=== PATIENT | female | born 1950 | race African-American/Black ===

== ENCOUNTER 2021-05-07 15:33 | Inpatient (IN) | payer MEDICARE, MEDICAID ==
[~2021-05-07] VITALS: Ht 152.4 cm; Wt 100.7 kg
[2021-05-07] MEDS ORDERED: POTASSIUM (15:48)
[2021-05-07] MEDS ORDERED: METOPROLOL (15:48)
[2021-05-07] MEDS ORDERED: LASIX (15:48)
[2021-05-07 16:56] LABS: BASOPHILS % 0.6 % (0.0-2.0); EOSINOPHILS % 3.2 % (0.0-5.0); HEMATOCRIT. 34.4 % (36.0-48.0); HEMOGLOBIN. 11.4 g/dL (12.0-16.0); LYMPHOCYTES % 33.4 % (20.0-50.0); MEAN CORPUSCULAR HEMOGLOBIN 27.4 pg (28.0-32.0); MEAN CORPUSCULAR VOLUME 82.3 fL (81.0-99.0); MEAN PLATELET VOLUME 9.2 fl (7.4-10.4); NEUTROPHILS % 52.8 % (40.0-76.0); PLATELET 215 x1000/uL (130-400); RED BLOOD CELL COUNT 4.18 mill/uL (4.2-5.4); RED CELL DISTRIBUTION WIDTH 14.6 % (11.6-14.6)
[2021-05-07 17:02] LABS: CHLORIDE 110 mEq/L (98-107)
[2021-05-07 18:07] LABS: ETHANOL BLOOD < 10 mg/dL
[2021-05-07 19:24] LABS: CLARITY URINE CLOUDY (CLEAR); COLOR URINE YELLOW (YELLOW); KETONES URINE TRACE (NEGATIVE); LEUKOCYTE ESTERASE URINE TRACE (NEGATIVE); NITRITE URINE NEGATIVE (NEGATIVE); OCCULT BLOOD URINE NEGATIVE (NEGATIVE); PH URINE 5.5 (4.5-8.0); PROTEIN URINE TRACE (NEGATIVE); SPECIFIC GRAVITY URINE 1.028 (1.005-1.030)
[2021-05-07] MEDS ORDERED: CEFTRIAXONE 1 G PREMIX 50 ML IV ONE (19:30)
[2021-05-07] MEDS ORDERED: AZITHROMYCIN 500 MG in DEXT 5% WATER 250 ML IV ONE (19:30)
[2021-05-07 19:35] LABS: *AMPHETAMINES SCREEN URINE NEGATIVE (NEGATIVE); *BARBITURATES SCREEN URINE NEGATIVE (NEGATIVE); *BENZODIAZEPINES SCREEN URINE NEGATIVE (NEGATIVE); *COCAINE SCREEN URINE NEGATIVE (NEGATIVE); OPIATES URINE SCREEN NEGATIVE (NEGATIVE); PHENCYCLIDINE URINE SCREEN NEGATIVE (NEGATIVE)
[2021-05-07 19:36] LABS: CANNABINOID URINE SCREEN NEGATIVE (NEGATIVE)
[2021-05-07 19:37] LABS: METHADONE URINE SCREEN NEGATIVE (NEGATIVE)
[2021-05-07 21:49] VITALS: BP 143/71
[2021-05-07] MEDS ORDERED: ASPI-1160 PO (22:55)
[2021-05-07] MEDS ORDERED: FOLI-43 PO (22:55)
[2021-05-07] MEDS ORDERED: FURO-152 PO (22:55)
[2021-05-07] MEDS ORDERED: DIGO125T80 PO (22:57)
[2021-05-07] MEDS ORDERED: LOSA25TA26 MT (22:58)
[2021-05-07] MEDS ORDERED: HYDR-4133 PO (22:58)
[2021-05-07 23:41] VITALS: BP 143/71
[2021-05-07] MEDS: HYDRALAZINE HCL 50MG TABLET PO SCH (23:54)
[2021-05-08] VITALS (8 sets, daily range): BP systolic 119–160; BP diastolic 59–86
[2021-05-08] MEDS: HYDRALAZINE HCL 50MG TABLET PO SCH (06:13)
[2021-05-08 06:59] LABS: HEMATOCRIT 35.3 % (36.0-48.0); HEMOGLOBIN 11.6 g/dL (12.0-16.0); MEAN CORPUSCULAR HEMOGLOBIN 27.1 pg (28.0-32.0); MEAN CORPUSCULAR VOLUME 82.2 fL (81.0-99.0); PLATELET 208 x1000/uL (130-400); RED BLOOD CELL COUNT 4.29 mill/uL (4.2-5.4); RED CELL DISTRIBUTION WIDTH 14.5 % (11.6-14.6)
[2021-05-08 07:00] LABS: CHLORIDE 110 mEq/L (98-107)
[2021-05-08 07:15] LABS: LDL CHOLESTEROL 64 mg/dL (5-100)
[2021-05-08 07:16] LABS: HDL CHOLESTEROL 43 mg/dL (40-59)
[2021-05-08] MEDS ORDERED: CARVEDILOL 3.125 MG TABLET PO SCH (09:00)
[2021-05-08] MEDS: LISINOPRIL 20MG TABLET PO SCH (09:00)
[2021-05-08] MEDS ORDERED: CARVEDILOL 6.25 MG TABLET PO SCH (09:09)
[2021-05-08] MEDS ORDERED: BISACODYL 10MG SUPP PR SCH (09:15)
[2021-05-08] MEDS ORDERED: LACTULOSE 20G/30ML UDC PO SCH (09:15)
[2021-05-08] MEDS: ASPIRIN 81MG TABLET PO SCH (09:20)
[2021-05-08] MEDS: FUROSEMIDE 40MG TABLET PO SCH (09:20)
[2021-05-08] MEDS: FOLIC ACID 1MG TABLET PO SCH (09:25)
[2021-05-08] MEDS: ENOXAPARIN 30MG/0.3ML SYR SUBCUT SCH ×2 (09:32→21:06)
[2021-05-08] MEDS: ACETAMINOPHEN 325MG TABLET PO PRN (11:22)
[2021-05-08] MEDS ORDERED: LACTULOSE 20G/30ML UDC PO PRN (12:00)
[2021-05-08] MEDS: DOCUSATE SODIUM 250MG CAPSULE PO SCH (13:02)
[2021-05-08] MEDS: HYDRALAZINE HCL 25MG TABLET PO SCH ×2 (14:26→21:07)
[2021-05-08] MEDS: DIGOXIN 125MCG TABLET PO SCH (18:00)
[2021-05-08] MEDS ORDERED: THROAT LOZENGES-BENZOCAINE/MENTH/CETYLPYRD CL LOZENGES MM PRN (18:45)
[2021-05-08] MEDS: FLUTICASONE PROPIONATE 50MCG/SPRAY BOTTLE BOTHNSTRLS SCH (21:05)
[2021-05-09 00:51] VITALS: BP 123/60
[2021-05-09 04:00] VITALS: BP 117/61
[2021-05-09] MEDS: HYDRALAZINE HCL 25MG TABLET PO SCH ×3 (06:41→21:00)
[2021-05-09 08:00] VITALS: BP_SYST 138; BP_DIAS 72; BP_DIAS 80
[2021-05-09] MEDS: FLUTICASONE PROPIONATE 50MCG/SPRAY BOTTLE BOTHNSTRLS SCH ×2 (09:00→20:54)
[2021-05-09] MEDS: ASPIRIN 81MG TABLET PO SCH (09:28)
[2021-05-09] MEDS: ENOXAPARIN 30MG/0.3ML SYR SUBCUT SCH ×2 (09:29→20:55)
[2021-05-09] MEDS: FUROSEMIDE 40MG TABLET PO SCH (09:29)
[2021-05-09] MEDS: FOLIC ACID 1MG TABLET PO SCH (09:29)
[2021-05-09] MEDS: ACETAMINOPHEN 325MG TABLET PO PRN ×2 (09:29→23:47)
[2021-05-09] MEDS: DOCUSATE SODIUM 250MG CAPSULE PO SCH (09:29)
[2021-05-09] MEDS: LISINOPRIL 20MG TABLET PO SCH (09:30)
[2021-05-09 12:00] VITALS: BP 107/56
[2021-05-09] MEDS: SPIRONOLACTONE 25MG TABLET PO SCH (13:32)
[2021-05-09 16:00] VITALS: BP 122/62
[2021-05-09] MEDS: DIGOXIN 125MCG TABLET PO SCH (18:02)
[2021-05-09 20:00] VITALS: BP_SYST 119; BP_SYST 120; BP_DIAS 54; BP_DIAS 60
[2021-05-10] VITALS: BP 145/63
[2021-05-10] MEDS ORDERED: HYDROCODONE/ACETAMINOPHEN 5/325MG TABLET PO PRN (02:30)
[2021-05-10 04:00] VITALS: BP 113/53
[2021-05-10] MEDS: HYDRALAZINE HCL 25MG TABLET PO SCH (06:00)
[2021-05-10 08:00] VITALS: BP 136/50
[2021-05-10] MEDS: FLUTICASONE PROPIONATE 50MCG/SPRAY BOTTLE BOTHNSTRLS SCH (09:25)
[2021-05-10] MEDS: FUROSEMIDE 40MG TABLET PO SCH (09:25)
[2021-05-10] MEDS: ASPIRIN 81MG TABLET PO SCH (09:25)
[2021-05-10] MEDS: DOCUSATE SODIUM 250MG CAPSULE PO SCH (09:25)
[2021-05-10] MEDS: LISINOPRIL 20MG TABLET PO SCH (09:26)
[2021-05-10] MEDS: SPIRONOLACTONE 25MG TABLET PO SCH (09:26)
[2021-05-10] MEDS: FOLIC ACID 1MG TABLET PO SCH (09:26)
[2021-05-10] MEDS: ACETAMINOPHEN 325MG TABLET PO PRN (09:27)
[2021-05-10] MEDS: ENOXAPARIN 30MG/0.3ML SYR SUBCUT SCH (09:27)
[2021-05-10] MEDS ORDERED: TRAMADOL 50MG TABLET PO PRN (10:45)
[2021-05-10 11:11] VITALS: BP 140/55
[2021-05-10 12:00] VITALS: BP 143/59
== END 2021-05-10 13:03 | disposition home or self-care (01) | DRG 280 ==
LOC: ER 15:33 → EDBEDREQ 18:19 → ENRESERV 21:02 → 6WST 21:44
PROVIDERS: ADMIT Internal Medicine; ATTEND Internal Medicine
PROC: 4A10X4Z Monitoring of Central Nervous Electrical Activity, External Approach (ICD-10-PCS; principal; 2021-05-09)
DX: I21.4 Non-ST elevation (NSTEMI) myocardial infarction (principal); I50.43 Acute on chronic combined systolic (congestive) and diastolic (congestive) heart failure; Z68.41 Body mass index [BMI] 40.0-44.9, adult; I42.9 Cardiomyopathy, unspecified; I11.0 Hypertensive heart disease with heart failure; I16.0 Hypertensive urgency; D64.9 Anemia, unspecified; Z20.822 Contact with and (suspected) exposure to COVID-19; F40.240 Claustrophobia; G90.8 Other disorders of autonomic nervous system; R00.1 Bradycardia, unspecified; E66.9 Obesity, unspecified; E78.5 Hyperlipidemia, unspecified; Z90.49 Acquired absence of other specified parts of digestive tract; Z86.011 Personal history of benign neoplasm of the brain; Z71.3 Dietary counseling and surveillance
CPT/HCPCS: 36415; 71045; 80048; 80053; 80061; 80305; 80320; 81003; 83605; 83735; 83880; 84484; 85025; 85027; 87426; 93005; 93306; 93880; 93970; 95816; 97161; 99285; C1893; J0456; J0696; J1650; J7060; G0480

== ENCOUNTER 2022-04-23 07:32 | Emergency (ER) | payer MEDICARE, MEDICAID ==
[~2022-04-23] VITALS: Ht 152.4 cm; Wt 98.0 kg
[~2022-04-23 07:32] MED LIST: ASPI-1160 PO; DIGO125T80 PO; FOLI-43 PO; FURO-152 PO; HYDR-4133 PO; LASIX; LOSA25TA26 MT; METOPROLOL; POTASSIUM
[2022-04-23 07:40] VITALS: BP 146/85
[2022-04-23 08:26] LABS: CHLORIDE 109 mEq/L (98-107)
[2022-04-23 08:27] LABS: BASOPHILS % 0.7 % (0.0-2.0); HEMATOCRIT. 35.4 % (36.0-48.0); HEMOGLOBIN. 11.6 g/dL (12.0-16.0); LYMPHOCYTES % 29.8 % (20.0-50.0); MEAN CORPUSCULAR HEMOGLOBIN 27.1 pg (28.0-32.0); MEAN CORPUSCULAR VOLUME 82.5 fL (81.0-99.0); MEAN PLATELET VOLUME 8.9 fl (7.4-10.4); MONOCYTES % 9.5 % (2.0-8.0); PLATELET 237 x1000/uL (130-400); RED CELL DISTRIBUTION WIDTH 14.5 % (11.6-14.6)
== END 2022-04-23 09:32 | disposition home or self-care (01) ==
LOC: ER 07:48
DX: R04.0 Epistaxis (principal); I11.0 Hypertensive heart disease with heart failure; I50.9 Heart failure, unspecified; E78.00 Pure hypercholesterolemia, unspecified; Z90.49 Acquired absence of other specified parts of digestive tract; Z79.82 Long term (current) use of aspirin; Z88.0 Allergy status to penicillin
CPT/HCPCS: 36415; 71045; 80053; 85025; 86850; 86900; 99284

== ENCOUNTER 2022-04-27 23:39 | Emergency (ER) | payer MEDICARE, MEDICAID ==
[~2022-04-27] VITALS: Ht 162.6 cm; Wt 100.0 kg
[2022-04-27 23:41] VITALS: BP 154/77
[2022-04-28] MEDS ORDERED: TRANEXAMIC ACID 1,000 MG/10 ML IV ONE (00:15)
== END 2022-04-28 01:29 | disposition home or self-care (01) ==
LOC: ER 23:39
DX: R04.0 Epistaxis (principal)
CPT/HCPCS: 96374; 99283

== ENCOUNTER 2022-05-04 04:25 | Emergency (ER) | payer MEDICARE, MEDICAID ==
[~2022-05-04] VITALS: Ht 152.4 cm; Wt 99.7 kg
[2022-05-04] MEDS ORDERED: BENZ100C86 MT (07:21)
[2022-05-04 08:03] VITALS: BP 128/75
== END 2022-05-04 08:15 | disposition home or self-care (01) ==
LOC: ER 04:25
DX: R05.9 Cough, unspecified (principal); R04.0 Epistaxis; I11.0 Hypertensive heart disease with heart failure; I50.9 Heart failure, unspecified; J44.9 Chronic obstructive pulmonary disease, unspecified; Z90.49 Acquired absence of other specified parts of digestive tract
CPT/HCPCS: 71045; 93005; 99283

== ENCOUNTER 2022-05-29 02:37 | Emergency (ER) | payer MEDICARE, MEDICAID ==
[~2022-05-29] VITALS: Ht 152.4 cm; Wt 100.2 kg
[~2022-05-29 02:37] MED LIST changes: +BENZ100C86 MT
[2022-05-29 04:29] LABS: BASOPHILS % 0.9 % (0.0-2.0); EOSINOPHILS % 3.2 % (0.0-5.0); HEMATOCRIT. 34.7 % (36.0-48.0); HEMOGLOBIN. 11.3 g/dL (12.0-16.0); LYMPHOCYTES % 32.4 % (20.0-50.0); MEAN CORPUSCULAR HEMOGLOBIN 27.2 pg (28.0-32.0); MEAN CORPUSCULAR VOLUME 83.5 fL (81.0-99.0); MEAN PLATELET VOLUME 8.9 fl (7.4-10.4); MONOCYTES % 9.9 % (2.0-8.0); NEUTROPHILS % 53.6 % (40.0-76.0); PLATELET 243 x1000/uL (130-400); RED BLOOD CELL COUNT 4.15 mill/uL (4.2-5.4); RED CELL DISTRIBUTION WIDTH 14.9 % (11.6-14.6)
[2022-05-29 04:38] LABS: CHLORIDE 107 mEq/L (98-107)
[2022-05-29 04:46] LABS: PROTHROMBIN TIME 10.7 sec (9.6-11.0)
[2022-05-29 06:00] VITALS: BP 139/68
== END 2022-05-29 07:08 | disposition home or self-care (01) ==
LOC: ER 02:37
DX: R04.0 Epistaxis (principal); J44.9 Chronic obstructive pulmonary disease, unspecified; I11.0 Hypertensive heart disease with heart failure; I50.9 Heart failure, unspecified; E78.00 Pure hypercholesterolemia, unspecified; Z90.721 Acquired absence of ovaries, unilateral; Z90.49 Acquired absence of other specified parts of digestive tract; Z79.82 Long term (current) use of aspirin; Z88.5 Allergy status to narcotic agent; Z88.8 Allergy status to other drugs, medicaments and biological substances; Z88.0 Allergy status to penicillin
CPT/HCPCS: 36415; 80048; 85025; 93005; 99284

== ENCOUNTER 2022-09-22 23:57 | Emergency (ER) | payer MEDICARE, MEDICAID | END 2022-09-23 00:19 | disposition left against medical advice (07) | LOC: ER 23:57 | DX: Z53.21 Procedure and treatment not carried out due to patient leaving prior to being seen by health care provider (principal) ==

== ENCOUNTER 2022-11-17 04:38 | Inpatient (IN) | payer MEDICARE, MEDICAID ==
[~2022-11-17] VITALS: Ht 167.6 cm; Wt 98.4 kg
[2022-11-17 08:32] LABS: HEMATOCRIT. 36.6 % (36.0-48.0); HEMOGLOBIN. 11.8 g/dL (12.0-16.0); MEAN CORPUSCULAR HEMOGLOBIN 26.9 pg (28.0-32.0); MEAN CORPUSCULAR VOLUME 83.5 fL (81.0-99.0); MEAN PLATELET VOLUME 8.2 fl (7.4-10.4); PLATELET 279 x1000/uL (130-400); RED BLOOD CELL COUNT 4.39 mill/uL (4.2-5.4); RED CELL DISTRIBUTION WIDTH 15.1 % (11.6-14.6)
[2022-11-17] MEDS ORDERED: ONDANSETRON HCL 4MG/2ML INJ IV STA (08:37)
[2022-11-17] MEDS ORDERED: KETOROLAC 30MG/ML VIAL IV STA (08:37)
[2022-11-17 08:40] LABS: CHLORIDE 108 mEq/L (98-107)
[2022-11-17 08:45] LABS: PROTHROMBIN TIME 10.8 sec (9.6-11.0)
[2022-11-17 09:59] LABS: PLATELET ESTIMATE NORMAL
[2022-11-17 12:00] VITALS: BP 119/68
[2022-11-17] MEDS ORDERED: CLONIDINE 0.1MG TABLET PO PRN (14:45)
[2022-11-17] MEDS ORDERED: IPRATROPIUM/ALBUTEROL 0.5-3(2.5)MG/3ML NEB HHN PRN (14:45)
[2022-11-17] MEDS ORDERED: NALOXONE HCL 0.4MG/ML VIAL IV PRN (14:45)
[2022-11-17] MEDS ORDERED: DOCUSATE SODIUM 100MG CAPSULE PO PRN (14:45)
[2022-11-17] MEDS ORDERED: ACETAMINOPHEN 325MG TABLET PO PRN (14:45)
[2022-11-17] MEDS ORDERED: LORAZEPAM 0.5MG TABLET PO PRN (14:45)
[2022-11-17] MEDS ORDERED: HYDROCODONE/ACETAMINOPHEN 5/325MG TABLET PO PRN (14:45)
[2022-11-17] MEDS ORDERED: ALBUTEROL (0.083%) 2.5MG/3ML NEB HHN PRN (15:00)
[2022-11-17] MEDS ORDERED: IPRATROPIUM BROMIDE (0.02%) 0.5MG/2.5ML NEB HHN PRN (15:00)
[2022-11-17 16:00] VITALS: BP 117/60
[2022-11-17 16:23] VITALS: BP 119/68
[2022-11-17] MEDS: SODIUM CHLORIDE 0.9% 1,000 ML IV SCH (17:00)
[2022-11-17 17:20] LABS: CLARITY URINE CLOUDY (CLEAR); COLOR URINE DARK YELLOW (YELLOW); KETONES URINE TRACE (NEGATIVE); LEUKOCYTE ESTERASE URINE TRACE (NEGATIVE); NITRITE URINE NEGATIVE (NEGATIVE); OCCULT BLOOD URINE NEGATIVE (NEGATIVE); PH URINE 5.5 (4.5-8.0); PROTEIN URINE 2+ (NEGATIVE); SPECIFIC GRAVITY URINE 1.027 (1.005-1.030)
[2022-11-17] MEDS: CEFTRIAXONE 1,000 MG in DEXTROSE 5% WATER 50 ML IV SCH (19:13)
[2022-11-17 19:52] LABS: HEPATITIS B SURFACE ANTIGEN NEGATIVE
[2022-11-17 20:00] VITALS: BP 135/75
[2022-11-17] MEDS: DIGOXIN 125MCG TABLET PO SCH (21:34)
[2022-11-17] MEDS: ONDANSETRON HCL 4MG/2ML INJ IV PRN (21:34)
[2022-11-17] MEDS: METRONIDAZOLE 500 MG PREMIX 100 ML IV SCH ×2 (21:35→23:07)
[2022-11-18] VITALS: BP 120/56
[2022-11-18 04:00] VITALS: BP 111/57
[2022-11-18] MEDS: METRONIDAZOLE 500 MG PREMIX 100 ML IV SCH ×3 (05:31→21:45)
[2022-11-18] MEDS: SODIUM CHLORIDE 0.9% 1,000 ML IV SCH (05:31)
[2022-11-18 07:22] LABS: BASOPHILS % 0.2 % (0.0-2.0); EOSINOPHILS % 1.9 % (0.0-5.0); HEMATOCRIT. 32.1 % (36.0-48.0); HEMOGLOBIN. 10.7 g/dL (12.0-16.0); MEAN CORPUSCULAR HEMOGLOBIN 27.9 pg (28.0-32.0); MEAN CORPUSCULAR VOLUME 83.6 fL (81.0-99.0); MEAN PLATELET VOLUME 8.9 fl (7.4-10.4); MONOCYTES % 11.2 % (2.0-8.0); NEUTROPHILS % 61.7 % (40.0-76.0); PLATELET 216 x1000/uL (130-400); RED BLOOD CELL COUNT 3.83 mill/uL (4.2-5.4); RED CELL DISTRIBUTION WIDTH 15.3 % (11.6-14.6)
[2022-11-18 07:59] LABS: CHLORIDE 110 mEq/L (98-107)
[2022-11-18 08:00] VITALS: BP 116/60
[2022-11-18 08:27] LABS: AMYLASE 61 IU/L (25-115); DIGOXIN 0.9 ng/mL (0.9-2.0); GAMMA GLUTAMYL TRANSPEPTIDASE 398 IU/L (7-32)
[2022-11-18] MEDS ORDERED: BISACODYL 10MG SUPP PR PRN (10:15)
[2022-11-18 12:00] VITALS: BP 118/74
[2022-11-18] MEDS ORDERED: SORBITOL 70% SOLN 30ML PO ONE (12:45)
[2022-11-18] MEDS: ASPIRIN 81MG TABLET PO SCH (13:39)
[2022-11-18 16:00] VITALS: BP 121/67
[2022-11-18] MEDS: CEFTRIAXONE 1,000 MG in DEXTROSE 5% WATER 50 ML IV SCH (17:16)
[2022-11-18] MEDS: DIGOXIN 125MCG TABLET PO SCH (17:57)
[2022-11-18 20:00] VITALS: BP 116/42
[2022-11-18] MEDS: ACETAMINOPHEN 325MG TABLET PO PRN (21:51)
[2022-11-19] VITALS: BP 124/60
[2022-11-19 04:00] VITALS: BP 117/54
[2022-11-19] MEDS: METRONIDAZOLE 500 MG PREMIX 100 ML IV SCH ×3 (05:29→21:48)
[2022-11-19 07:47] LABS: BASOPHILS % 0.4 % (0.0-2.0); EOSINOPHILS % 1.9 % (0.0-5.0); HEMATOCRIT. 31.6 % (36.0-48.0); HEMOGLOBIN. 10.4 g/dL (12.0-16.0); LYMPHOCYTES % 24.9 % (20.0-50.0); MEAN CORPUSCULAR HEMOGLOBIN 27.8 pg (28.0-32.0); MEAN CORPUSCULAR VOLUME 84.5 fL (81.0-99.0); MEAN PLATELET VOLUME 8.8 fl (7.4-10.4); MONOCYTES % 10.1 % (2.0-8.0); NEUTROPHILS % 62.7 % (40.0-76.0); PLATELET 229 x1000/uL (130-400); RED BLOOD CELL COUNT 3.74 mill/uL (4.2-5.4); RED CELL DISTRIBUTION WIDTH 15.6 % (11.6-14.6)
[2022-11-19 08:13] LABS: CHLORIDE 109 mEq/L (98-107)
[2022-11-19] MEDS: ASPIRIN 81MG TABLET PO SCH (08:59)
[2022-11-19] MEDS: PANTOPRAZOLE SODIUM 40 MG/VIAL IV SCH (12:39)
[2022-11-19] MEDS: ONDANSETRON HCL 4MG/2ML INJ IV PRN (12:39)
[2022-11-19] MEDS: CEFTRIAXONE 1GM PREMIX 50 ML IV SCH (16:00)
[2022-11-19] MEDS: DIGOXIN 125MCG TABLET PO SCH (18:00)
[2022-11-19 20:00] VITALS: BP 111/52
[2022-11-20] VITALS: BP 132/60
[2022-11-20 04:00] VITALS: BP 143/58
[2022-11-20] MEDS: METRONIDAZOLE 500 MG PREMIX 100 ML IV SCH ×2 (05:03→14:00)
[2022-11-20 08:00] VITALS: BP 136/59
[2022-11-20] MEDS: ASPIRIN 81MG TABLET PO SCH (09:33)
[2022-11-20] MEDS: PANTOPRAZOLE SODIUM 40 MG/VIAL IV SCH ×2 (09:34→21:00)
[2022-11-20 12:00] VITALS: BP 130/67
[2022-11-20 13:45] LABS: TOTAL IRON BINDING CAPACITY 217 ug/dL (250-450)
[2022-11-20 14:18] LABS: VITAMIN B12 SERUM 522 pg/mL (211-911)
[2022-11-20 14:30] LABS: FOLIC ACID (FOLATE) SERUM > 20.00 ng/mL (>5.38)
[2022-11-20 14:34] LABS: FERRITIN 114 ng/mL (10-291)
[2022-11-20] MEDS: CEFTRIAXONE 1GM PREMIX 50 ML IV SCH (15:57)
[2022-11-20 16:00] VITALS: BP 138/67
[2022-11-20] MEDS: DIGOXIN 125MCG TABLET PO SCH (18:00)
[2022-11-20 20:00] VITALS: BP 141/51
[2022-11-21] VITALS: BP 138/51
[2022-11-21] MEDS: ONDANSETRON HCL 4MG/2ML INJ IV PRN (01:35)
[2022-11-21 04:00] VITALS: BP 142/67
[2022-11-21] MEDS: METRONIDAZOLE 500 MG PREMIX 100 ML IV SCH ×3 (05:16→21:13)
[2022-11-21] MEDS ORDERED: NITROGLYCERIN SPRAY/4.9GM CAN TL NR (06:45)
[2022-11-21 07:11] LABS: BASOPHILS % 0.3 % (0.0-2.0); EOSINOPHILS % 1.2 % (0.0-5.0); HEMATOCRIT. 31.6 % (36.0-48.0); HEMOGLOBIN. 10.5 g/dL (12.0-16.0); LYMPHOCYTES % 23.5 % (20.0-50.0); MEAN CORPUSCULAR HEMOGLOBIN 27.8 pg (28.0-32.0); MEAN CORPUSCULAR VOLUME 83.9 fL (81.0-99.0); MEAN PLATELET VOLUME 8.6 fl (7.4-10.4); MONOCYTES % 9.8 % (2.0-8.0); NEUTROPHILS % 65.2 % (40.0-76.0); PLATELET 225 x1000/uL (130-400); RED BLOOD CELL COUNT 3.77 mill/uL (4.2-5.4); RED CELL DISTRIBUTION WIDTH 15.4 % (11.6-14.6)
[2022-11-21] MEDS ORDERED: IOHEXOL-350 100 ML BOTTLE ONE ×2 (07:15→13:24)
[2022-11-21 07:47] LABS: CHLORIDE 110 mEq/L (98-107)
[2022-11-21 08:00] VITALS: BP 113/65
[2022-11-21] MEDS ORDERED: LIDOCAINE HCL/PF 1% 10 MG/ML 5ML VIAL ONE (09:23)
[2022-11-21 12:00] VITALS: BP 128/55
[2022-11-21 16:00] VITALS: BP 150/66
[2022-11-21] MEDS ORDERED: CEFTRIAXONE 1GM PREMIX 50 ML IV SCH (16:00)
[2022-11-21] MEDS: PANTOPRAZOLE SODIUM 40 MG/VIAL IV SCH ×2 (17:00→21:13)
[2022-11-21] MEDS: ASPIRIN 81MG TABLET PO SCH (17:00)
[2022-11-21] MEDS: DIGOXIN 125MCG TABLET PO SCH (18:19)
[2022-11-22] VITALS: BP 144/60
[2022-11-22] MEDS: ACETAMINOPHEN 325MG TABLET PO PRN (03:29)
[2022-11-22 04:00] VITALS: BP 157/78
[2022-11-22] MEDS: METRONIDAZOLE 500 MG PREMIX 100 ML IV SCH (05:52)
[2022-11-22 08:00] VITALS: BP_SYST 127; BP_SYST 137; BP_DIAS 58; BP_DIAS 64
[2022-11-22] MEDS: ASPIRIN 81MG TABLET PO SCH (09:57)
[2022-11-22] MEDS: PANTOPRAZOLE SODIUM 40 MG/VIAL IV SCH (09:57)
[2022-11-22] MEDS ORDERED: PANT40TA51 MT (10:10)
[2022-11-22 10:23] VITALS: BP 127/64
[2022-11-22 12:00] VITALS: BP 145/53
== END 2022-11-22 13:30 | disposition home or self-care (01) | DRG 392 ==
LOC: ER 04:38 → 6EST 09:07 → EDBEDREQ 09:10 → EDBEDREQTM 09:10 → ENRESERV 10:50 → 6EST 11-19 10:30
PROVIDERS: ADMIT Family Medicine Adult Medicine; ATTEND Family Medicine Adult Medicine
PROC: 02HV33Z Insertion of Infusion Device into Superior Vena Cava, Percutaneous Approach (ICD-10-PCS; principal; 2022-11-21)
PROC: B548ZZA Ultrasonography of Superior Vena Cava, Guidance (ICD-10-PCS; 2022-11-21)
DX: K52.9 Noninfective gastroenteritis and colitis, unspecified (principal); I42.9 Cardiomyopathy, unspecified; I50.22 Chronic systolic (congestive) heart failure; I11.0 Hypertensive heart disease with heart failure; D64.9 Anemia, unspecified; B19.20 Unspecified viral hepatitis C without hepatic coma; E66.9 Obesity, unspecified; Z68.35 Body mass index [BMI] 35.0-35.9, adult; J44.9 Chronic obstructive pulmonary disease, unspecified; Z20.822 Contact with and (suspected) exposure to COVID-19; D72.825 Bandemia; E78.5 Hyperlipidemia, unspecified; E80.6 Other disorders of bilirubin metabolism; K59.00 Constipation, unspecified; R77.8 Other specified abnormalities of plasma proteins; I25.2 Old myocardial infarction; Z90.49 Acquired absence of other specified parts of digestive tract; Z79.82 Long term (current) use of aspirin; Z88.0 Allergy status to penicillin; Z88.5 Allergy status to narcotic agent
CPT/HCPCS: 36415; 36573; 71045; 74176; 75571; 76705; 80048; 80053; 80061; 80076; 80162; 81003; 82150; 82248; 82607; 82728; 82746; 82977; 83540; 83550; 84484; 85025; 85044; 86705; 86709; 86803; 87340; 87426; 93005; 93306; 99285; C1725; C1769; C1893; C9113; J0696; J1885; J2405; J3490; J7030; J7060; Q9967